=== PATIENT | male | born 2000 | race American Indian/Alaskan Native ===

== ENCOUNTER 2019-08-02 22:27 | Emergency (ER) | payer OTHER ==
[2019-08-03] MEDS ORDERED: IBUPROFEN 600 MG TAB PO ONE (01:27)
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
== END 2019-08-03 04:07 | disposition home or self-care (01) ==
LOC: ED 22:27
DX: S29.012A Strain of muscle and tendon of back wall of thorax, initial encounter (principal); M62.830 Muscle spasm of back; M62.838 Other muscle spasm; V89.2XXA Person injured in unspecified motor-vehicle accident, traffic, initial encounter; Y93.89 Activity, other specified; Y92.89 Other specified places as the place of occurrence of the external cause; Y99.8 Other external cause status
CPT/HCPCS: 72040; 72070; 72100

== ENCOUNTER 2019-11-16 09:57 | Emergency (ER) | payer SELFPAY ==
[2019-11-16 10:43] VITALS: BP 127/74
--- NOTE | 2019-11-16 11:02 | Emergency Department Report ---
ED General Adult HPI - General Chief complaint: Rectal Pain Stated complaint: ANAL SENISTIVITY Time Seen by Provider: 11/16/19 10:56 Source: patient Mode of arrival: Ambulatory Limitations: No Limitations - History of Present Illness Initial comments: This is a 19-year-old male nontoxic well in appearance with no acute signs of distress noted rectal pain. Patient is a homosexual and has rectal intercourse. Denies any blood in stool. Denies any numbness, tingling, abdominal pain, pelvic pain, nausea, vomiting, chest pain, SOB. Denies any penile compliants. Denies any discharge or urinary symptoms. -: days(s) Severity scale (0 -10): 0 Consistency: intermittent Improves with: none Worsens with: none Associated Symptoms: denies other symptoms. denies: confusion, chest pain, cough, diaphoresis, fever/chills, headaches, loss of appetite, malaise, nausea/vomiting, rash, seizure, shortness of breath, syncope, weakness Treatments Prior to Arrival: none - Related Data Previous Rx's Medication Instructions Recorded Last Taken Type Cyclobenzaprine [Flexeril] 10 mg PO Q8H PRN #15 tablet 08/03/19 Unknown Rx Ibuprofen [Motrin] 800 mg PO Q8HR PRN #24 tablet 08/03/19 Unknown Rx Cyclobenzaprine [Flexeril] 10 mg PO TID PRN #21 tablet 09/27/19 Unknown Rx Ibuprofen [Motrin] 800 mg PO Q8HR PRN #30 tablet 09/27/19 Unknown Rx Allergies Allergy/AdvReac Type Severity Reaction Status Date / Time No Known Allergies Allergy Unverified 08/02/19 22:31 ED Review of Systems ROS: Stated complaint: ANAL SENISTIVITY Other details as noted in HPI Constitutional: denies: chills, fever Eyes: denies: eye pain, eye discharge, vision change ENT: denies: ear pain, throat pain Respiratory: denies: cough, shortness of breath, wheezing Cardiovascular: denies: chest pain, palpitations Endocrine: no symptoms reported Gastrointestinal: denies: abdominal pain, nausea, diarrhea Genitourinary: denies: urgency, dysuria Musculoskeletal: denies: back pain, joint swelling, arthralgia Skin: denies: rash, lesions Neurological: denies: headache, weakness, paresthesias Psychiatric: denies: anxiety, depression Hematological/Lymphatic: denies: easy bleeding, easy bruising ED Past Medical Hx - Past Medical History Previous Medical History?: Yes Hx Hypertension: Yes - Surgical History Past Surgical History?: No - Social History Smoking Status: Current Every Day Smoker Substance Use Type: Marijuana - Medications Home Medications: Home Medications Medication Instructions Recorded Confirmed Last Taken Type Cyclobenzaprine [Flexeril] 10 mg PO Q8H PRN #15 tablet 08/03/19 Unknown Rx Ibuprofen [Motrin] 800 mg PO Q8HR PRN #24 tablet 08/03/19 Unknown Rx Cyclobenzaprine [Flexeril] 10 mg PO TID PRN #21 tablet 09/27/19 Unknown Rx Ibuprofen [Motrin] 800 mg PO Q8HR PRN #30 tablet 09/27/19 Unknown Rx ED Physical Exam - General Limitations: No Limitations General appearance: alert, in no apparent distress - Head Head exam: Present: atraumatic, normocephalic - Neck Neck exam: Present: normal inspection, full ROM - GI/Abdominal GI/Abdominal exam: Present: soft, normal bowel sounds. Absent: distended, tenderness, guarding, rebound, rigid, diminished bowel sounds - Rectal Rectal exam: Present: normal inspection, normal rectal tone, other (small abrasion noted). Absent: decreased rectal tone, black stool, bloody stool, fecal impaction, hemorrhoids, mass, tenderness - Extremities Exam Extremities exam: Present: normal inspection, full ROM - Back Exam Back exam: Present: normal inspection, full ROM. Absent: tenderness, CVA tenderness (R), CVA tenderness (L), muscle spasm, paraspinal tenderness, vertebral tenderness, rash noted - Neurological Exam Neurological exam: Present: alert, oriented X3, normal gait - Psychiatric Psychiatric exam: Present: normal affect, normal mood - Skin Skin exam: Present: warm, dry, intact, normal color. Absent: rash ED Course Vital Signs 11/16/19 10:39 Temperature 97.8 F Pulse Rate 82 Respiratory 16 Rate Blood Pressure 127/74 [Left] O2 Sat by Pulse 98 Oximetry - Reevaluation(s) Reevaluation #1: 11/16/19 11:01 Patient is speaking in full sentences with no signs of distress noted. ED Medical Decision Making - Medical Decision Making 19-year-old male that presents with a nonmedical emergency. Patient is stable and was examined by me. Exam does not show any emergency medical condition. Educated on OTC medical treatment with neosporin with lidocaine treatment. Patient was instructed to Follow-up with a primary care doctor in 3-5 days or if symptoms worsen and continue return to emergency room as soon as possible. At time of discharge, the patient does not seem toxic or ill in appearance. No acute signs of distress noted. Patient agrees to discharge treatment plan of care. No further questions noted by the patient. Critical care attestation.: If time is entered above; I have spent that time in minutes in the direct care of this critically ill patient, excluding procedure time. ED Disposition Clinical Impression: Abrasion of anus Qualifiers: Encounter type: initial encounter Qualified Code(s): S30.817A - Abrasion of anus, initial encounter Disposition: MED SCREENING EXAM-LEFT Is pt being admited?: No Does the pt Need Aspirin: No Condition: Stable Additional Instructions: Follow-up with a primary care doctor in 3-5 days or if symptoms worsen and continue return to emergency room as soon as possible. Referrals: PRIMARY MD DONOVAN [Referring] - 3-5 Days CHRISTIE URIBE MD [Staff Physician] - 3-5 Days
== END 2019-11-16 11:18 | disposition left against medical advice (07) ==
LOC: ED 09:57
DX: S30.817A Abrasion of anus, initial encounter (principal); Z53.21 Procedure and treatment not carried out due to patient leaving prior to being seen by health care provider; X58.XXXA Exposure to other specified factors, initial encounter; Y93.89 Activity, other specified; Y92.89 Other specified places as the place of occurrence of the external cause; Y99.8 Other external cause status